=== PATIENT | female | born 1935 | race Caucasian/White ===

== ENCOUNTER 2023-10-04 10:51 | Emergency (ER) | payer OTHER ==
[~2023-10-04] VITALS: Ht 149.9 cm; Wt 67.8 kg
[2023-10-04 11:35] LABS: Basophils # (auto) 0.1 10 ^3/uL (0-0.2); Eosinophils # (auto) 0.1 10 ^3/uL (0-0.8); Eosinophils % (auto) 1.2 % (0.0-7.0); Hemoglobin 13.9 g/dL (12.2-16.2); Lymphocytes # (auto) 1.1 10 ^3/uL (0.4-5.4); Lymphocytes % (auto) 20.5 % (10.0-50.0); Mean Corpuscular Hemoglobin 27.3 pg (28.0-32.0); Mean Corpuscular Hgb Conc. 32.3 g/dL (32.0-36.0); Mean Corpuscular Volume 84.5 fL (80.0-100.0); Monocytes # (auto) 0.4 10 ^3/uL (0-1.3); Monocytes % (auto) 7.5 % (0.0-12.0); Neutrophils # (auto) 3.9 10 ^3/uL (1.6-8.6); Neutrophils % (auto) 69.8 % (37.0-80.0); Red Blood Cells 5.09 10^6/uL (4.0-5.20); Red Cell Distribution Width 15.1 % (11.8-14.3); White Blood Cell 5.6 10^3/uL (4.4-10.8)
[2023-10-04 11:47] LABS: INR 1.08 (0.9-1.15); Prothrombin Time 11.4 sec (9.3-11.8)
[2023-10-04 11:55] LABS: Alkaline Phosphatase 66 U/L (46-116); Anion Gap 4 (5-15); Aspartate Aminotransferase 9 U/L (13-40); BUN/Creatinine Ratio 13.6 (10.0-20.0); Blood Urea Nitrogen 12 mg/dL (9-23); Calcium 9.7 mg/dL (8.7-10.4); Carbon Dioxide 28 mmol/L (20-30); Chloride 107 mmol/L (98-107); Glucose 98 mg/dL (74-106); Lipase 33 U/L (12-53); Potassium 4.4 mmol/L (3.5-5.1); Sodium 139 mmol/L (136-145)
[2023-10-04 11:56] LABS: Bilirubin, Total 0.8 mg/dL (0.2-1.0); Total Protein 6.7 g/dL (5.7-8.2)
[2023-10-04 11:57] LABS: Alanine Aminotransferase < 9 U/L (7-40)
[2023-10-04 13:08] VITALS: BP 166/70; PULSE 62; RESP 16; TEMP 98; O2SAT 95
== END 2023-10-04 14:09 | disposition home or self-care (01) ==
LOC: ER 10:51
DX: Z04.89 Encounter for examination and observation for other specified reasons (principal); R51.9 Headache, unspecified
CPT/HCPCS: 36415; 70450; 80053; 83690; 84484; 85025; 85610; 93005

== ENCOUNTER 2023-10-24 06:59 | Inpatient (IN) | payer OTHER ==
[~2023-10-24] VITALS: Ht 149.9 cm; Wt 73.0 kg
[2023-10-24] VITALS (49 sets, daily range): BP systolic 84–141; BP diastolic 42–65; PULSE 67–82; RESP 9–20; TEMP 97.1–98.4; O2SAT 93–100
[2023-10-24] MEDS: IODIXANOL 320MG/ML 100ML BTL IV ONE ×6 (07:40→13:51)
[2023-10-24] MEDS: LIDOCAINE 2%HCL (LOCAL ANESTH.) INJ 20ML MDV ONE ×2 (07:40→12:17)
[2023-10-24] MEDS: HEPARIN SODIUM (PORCINE) 5000 UNITS/ML 1ML VIAL ONE (08:58)
[2023-10-24] MEDS: ANGIOMAX 250 MG VIAL IV ONE ×4 (08:58→14:15)
[2023-10-24] MEDS: VERAPAMIL 2.5MG/ML INJ 2ML VIAL IV ONE (08:58)
[2023-10-24] MEDS: fentaNYL CITRATE 100 MCG/2 ML VL ONE ×2 (08:59→10:23)
[2023-10-24] MEDS: MIDAZOLAM HCL 2MG/2ML 2ml VIAL (1mg/ml) ONE ×2 (08:59→10:24)
[2023-10-24] MEDS: SODIUM CHL 0.9% 50 ML ONE ×4 (08:59→14:15)
[2023-10-24] MEDS: NITROGLYCERIN 50MG/250ML 250 ML IV ONE (09:04)
[2023-10-24] MEDS: hydrALAZINE HCL 20 MG/ML VL ONE ×2 (09:27→13:46)
[2023-10-24] MEDS: ATROPINE SULF 1 MG/10ml SYR ONE (10:16)
[2023-10-24] MEDS: HYDROmorphone HCL 2 MG/ML VL/or syr ONE (10:48)
[2023-10-24] MEDS ORDERED: KETOROLAC TROMETH 30 MG/ML 1ML VIAL IV ONE (11:00)
[2023-10-24] MEDS: CLOPIDOGREL BISULFATE 75 MG TAB ONE ×2 (11:10→11:11)
[2023-10-24] MEDS: ASPirin 325 MG TAB ONE (11:10)
[2023-10-24] MEDS: ONDANSETRON HCL 4 MG/2 ML VIAL ONE (11:15)
[2023-10-24] MEDS ORDERED: NITROGLYCERIN 0.4 MG SL TAB SL PRN ×2 (12:15→14:45)
[2023-10-24] MEDS ORDERED: MORPHINE SULFATE INJ 2 MG/ml SYRG IV PRN ×2 (12:15→14:45)
[2023-10-24] MEDS: HEPARIN IN NS 1000Units/500mL 1,500 ML ONE (12:18)
[2023-10-24] MEDS: diphenhdrAMINE HCL 50 MG/1 ML VL ONE (13:03)
[2023-10-24 13:20] LABS: Base Excess 1.5 mmol/L (-2.0-2.0)
[2023-10-24] MEDS: ROCURONIUM 10MG/ML 10ML VIAL IV ONE (13:25)
[2023-10-24] MEDS: ETOMIDATE (2MG/ML) 20ML VIAL IV ONE (13:25)
[2023-10-24] MEDS: NOREPINEPHRINE 8 MG/250ML KIT 250 ML IV ONE (13:30)
[2023-10-24] MEDS: fentaNYL Drip 2500mCg/250mlNS 250 ML IV ONE (13:30)
[2023-10-24] MEDS: MIDAZOLAM DRIP 50 mg/50mL 50 ML IV ONE (13:30)
[2023-10-24] MEDS: METOPROLOL TARTRATE 1MG/1ML-5ML VIAL IV ONE (13:46)
[2023-10-24] MEDS ORDERED: ONDANSETRON HCL 4 MG/2 ML VIAL IV PRN (14:45)
[2023-10-24] MEDS: fentaNYL Drip 2500mCg/250mlNS 250 ML IV SCH (15:08)
[2023-10-24] MEDS: MIDAZOLAM DRIP 50 mg/50mL 50 ML IV SCH (15:08)
[2023-10-24 15:26] LABS: Base Excess -2.7 mmol/L (-2.0-2.0)
[2023-10-24] MEDS ORDERED: hydrALAZINE HCL 20 MG/ML VL IV PRN (15:30)
[2023-10-24] MEDS: SODIUM CHLORIDE 0.9% 1,000 ML IV SCH (15:43)
[2023-10-24] MEDS: PANTOPRAZOLE 40 MG/10 ML VIAL INJ IV ONE (16:48)
[2023-10-24] MEDS: ACETYLCYSTEINE ORAL for CIN 20%(200MG/ML) 4ML PO SCH (17:29)
[2023-10-24] MEDS: METOPROLOL TARTRATE 1MG/1ML-5ML VIAL IV SCH (17:31)
[2023-10-24 18:38] LABS: Basophils # (auto) 0 10 ^3/uL (0-0.2); Basophils % (auto) 0.3 % (0.0-2.0); Eosinophils # (auto) 0 10 ^3/uL (0-0.8); Hematocrit 43.9 % (36.0-46.0); Hemoglobin 14.1 g/dL (12.2-16.2); Lymphocytes # (auto) 0.8 10 ^3/uL (0.4-5.4); Lymphocytes % (auto) 6.3 % (10.0-50.0); Mean Corpuscular Hemoglobin 27.3 pg (28.0-32.0); Mean Corpuscular Hgb Conc. 32.2 g/dL (32.0-36.0); Mean Corpuscular Volume 84.9 fL (80.0-100.0); Monocytes # (auto) 1.1 10 ^3/uL (0-1.3); Monocytes % (auto) 8.8 % (0.0-12.0); Neutrophils # (auto) 11.1 10 ^3/uL (1.6-8.6); Neutrophils % (auto) 84.6 % (37.0-80.0); Red Blood Cells 5.17 10^6/uL (4.0-5.20); Red Cell Distribution Width 14.8 % (11.8-14.3); White Blood Cell 13.1 10^3/uL (4.4-10.8)
[2023-10-24 18:42] LABS: Chloride 107 mmol/L (98-107); Potassium 3.6 mmol/L (3.5-5.1); Sodium 140 mmol/L (136-145)
[2023-10-24 18:43] LABS: Anion Gap 13 (5-15); Carbon Dioxide 20 mmol/L (20-30)
[2023-10-24 18:44] LABS: Calcium 9.9 mg/dL (8.7-10.4)
[2023-10-24 18:48] LABS: BUN/Creatinine Ratio 12.7 (10.0-20.0); Blood Urea Nitrogen 9 mg/dL (9-23); Glucose 134 mg/dL (74-106)
[2023-10-24] MEDS: ATORVASTATIN 20 MG TAB PO SCH (22:06)
[2023-10-24 23:03] LABS: Albumin 3.8 g/dL (3.2-4.8); Alkaline Phosphatase 61 U/L (46-116); Anion Gap 11 (5-15); Aspartate Aminotransferase 12 U/L (13-40); BUN/Creatinine Ratio 11.3 (10.0-20.0); Bilirubin, Total 0.8 mg/dL (0.2-1.0); Blood Urea Nitrogen 8 mg/dL (9-23); Calcium 9.5 mg/dL (8.7-10.4); Carbon Dioxide 20 mmol/L (20-30); Chloride 110 mmol/L (98-107); Glucose 116 mg/dL (74-106); Potassium 3.6 mmol/L (3.5-5.1); Sodium 141 mmol/L (136-145); Total Protein 6.5 g/dL (5.7-8.2)
[2023-10-24 23:09] LABS: Alanine Aminotransferase < 9 U/L (7-40)
[2023-10-25] VITALS (69 sets, daily range): BP systolic 86–142; BP diastolic 42–76; PULSE 79–119; RESP 14–18; TEMP 98.2–99.6; O2SAT 92–100
[2023-10-25 06:59] LABS: Basophils # (auto) 0 10 ^3/uL (0-0.2); Basophils % (auto) 0.2 % (0.0-2.0); Eosinophils # (auto) 0 10 ^3/uL (0-0.8); Lymphocytes # (auto) 0.4 10 ^3/uL (0.4-5.4); Mean Corpuscular Volume 87.4 fL (80.0-100.0); Monocytes # (auto) 0.5 10 ^3/uL (0-1.3); Neutrophils # (auto) 5.9 10 ^3/uL (1.6-8.6); White Blood Cell 6.8 10^3/uL (4.4-10.8)
[2023-10-25 07:02] LABS: Hematocrit 21.9 % (36.0-46.0); Hemoglobin 7.2 g/dL (12.2-16.2); Lymphocytes % (auto) 5.4 % (10.0-50.0); Mean Corpuscular Hemoglobin 28.6 pg (28.0-32.0); Mean Corpuscular Hgb Conc. 32.7 g/dL (32.0-36.0); Monocytes % (auto) 7.6 % (0.0-12.0); Neutrophils % (auto) 86.8 % (37.0-80.0); Nucleated Red Blood Cells % 0.1 %; Red Blood Cells 2.51 10^6/uL (4.0-5.20); Red Cell Distribution Width 15.2 % (11.8-14.3)
[2023-10-25 07:03] LABS: Base Excess -7.5 mmol/L (-2.0-2.0)
[2023-10-25] MEDS: DexmedeTOMIDine 200 MCG in D5W 5% 48 ML IV SCH (07:30)
[2023-10-25 08:55] LABS: Chloride 111 mmol/L (98-107); Potassium 3.8 mmol/L (3.5-5.1); Sodium 141 mmol/L (136-145)
[2023-10-25 08:58] LABS: Anion Gap 6 (5-15); Calcium 8.8 mg/dL (8.5-10.1); Carbon Dioxide 24 mmol/L (20-30)
[2023-10-25 09:03] LABS: Alkaline Phosphatase 55 U/L (46-116); BUN/Creatinine Ratio 11.6 (10.0-20.0); Blood Urea Nitrogen 10 mg/dL (9-23); Glucose 126 mg/dL (74-106)
[2023-10-25 09:05] LABS: Alanine Aminotransferase < 9 U/L (7-40); Albumin 3.4 g/dL (3.2-4.8); Aspartate Aminotransferase 16 U/L (13-40); Bilirubin, Total 0.8 mg/dL (0.2-1.0); Total Protein 5.6 g/dL (5.7-8.2)
[2023-10-25] MEDS: CLOPIDOGREL BISULFATE 75 MG TAB PO SCH (09:34)
[2023-10-25] MEDS: ASPirin 81 mg TAB PO SCH (09:35)
[2023-10-25] MEDS: PANTOPRAZOLE 40 MG/10 ML VIAL INJ IV SCH (10:19)
[2023-10-25 18:13] LABS: Basophils # (auto) 0 10 ^3/uL (0-0.2); Basophils % (auto) 0.2 % (0.0-2.0); Eosinophils # (auto) 0 10 ^3/uL (0-0.8); Eosinophils % (auto) 0.1 % (0.0-7.0); Hematocrit 34.3 % (36.0-46.0); Hemoglobin 11.1 g/dL (12.2-16.2); Lymphocytes % (auto) 10.3 % (10.0-50.0); Mean Corpuscular Hemoglobin 27.7 pg (28.0-32.0); Mean Corpuscular Hgb Conc. 32.4 g/dL (32.0-36.0); Mean Corpuscular Volume 85.6 fL (80.0-100.0); Monocytes # (auto) 1.1 10 ^3/uL (0-1.3); Monocytes % (auto) 11.2 % (0.0-12.0); Neutrophils # (auto) 7.4 10 ^3/uL (1.6-8.6); Neutrophils % (auto) 78.2 % (37.0-80.0); Red Blood Cells 4.01 10^6/uL (4.0-5.20); Red Cell Distribution Width 15.2 % (11.8-14.3); White Blood Cell 9.5 10^3/uL (4.4-10.8)
[2023-10-25 18:39] LABS: Albumin 3.3 g/dL (3.2-4.8); Alkaline Phosphatase 49 U/L (46-116); Anion Gap 5 (5-15); Aspartate Aminotransferase 19 U/L (13-40); BUN/Creatinine Ratio 13.7 (10.0-20.0); Blood Urea Nitrogen 10 mg/dL (9-23); Calcium 8.6 mg/dL (8.5-10.1); Carbon Dioxide 25 mmol/L (20-30); Chloride 113 mmol/L (98-107); Glucose 109 mg/dL (74-106); Potassium 3.5 mmol/L (3.5-5.1); Sodium 143 mmol/L (136-145)
[2023-10-25 18:40] LABS: Bilirubin, Total 0.7 mg/dL (0.2-1.0); Total Protein 5.3 g/dL (5.7-8.2)
[2023-10-25 18:50] LABS: Alanine Aminotransferase < 9 U/L (7-40)
[2023-10-26] VITALS (8 sets, daily range): BP systolic 98–150; BP diastolic 56–75; PULSE 89–103; RESP 16–20; TEMP 98.3–99.5; O2SAT 91–96
[2023-10-26 05:40] LABS: Basophils # (auto) 0 10 ^3/uL (0-0.2); Basophils % (auto) 0.7 % (0.0-2.0); Eosinophils # (auto) 0 10 ^3/uL (0-0.8); Eosinophils % (auto) 0.6 % (0.0-7.0); Hematocrit 31.9 % (36.0-46.0); Hemoglobin 10.4 g/dL (12.2-16.2); Lymphocytes % (auto) 14.4 % (10.0-50.0); Mean Corpuscular Hemoglobin 27.7 pg (28.0-32.0); Mean Corpuscular Hgb Conc. 32.5 g/dL (32.0-36.0); Mean Corpuscular Volume 85.1 fL (80.0-100.0); Monocytes # (auto) 0.7 10 ^3/uL (0-1.3); Monocytes % (auto) 10.5 % (0.0-12.0); Neutrophils # (auto) 5.1 10 ^3/uL (1.6-8.6); Neutrophils % (auto) 73.8 % (37.0-80.0); Red Blood Cells 3.75 10^6/uL (4.0-5.20); Red Cell Distribution Width 14.8 % (11.8-14.3); White Blood Cell 6.9 10^3/uL (4.4-10.8)
[2023-10-26 18:26] LABS: Chloride 110 mmol/L (98-107); Potassium 3.3 mmol/L (3.5-5.1); Sodium 140 mmol/L (136-145)
[2023-10-26 18:27] LABS: Anion Gap 7 (5-15); Carbon Dioxide 23 mmol/L (20-30)
[2023-10-26 18:32] LABS: BUN/Creatinine Ratio 10.8 (10.0-20.0); Blood Urea Nitrogen 7 mg/dL (9-23); Glucose 106 mg/dL (74-106)
[2023-10-27 05:00] VITALS: BP 142/63; PULSE 80; RESP 17; TEMP 98.8; O2SAT 96
[2023-10-27 06:10] LABS: Basophils # (auto) 0.1 10 ^3/uL (0-0.2); Basophils % (auto) 1.1 % (0.0-2.0); Eosinophils # (auto) 0.1 10 ^3/uL (0-0.8); Eosinophils % (auto) 1.5 % (0.0-7.0); Hematocrit 28.2 % (36.0-46.0); Hemoglobin 9.4 g/dL (12.2-16.2); Lymphocytes # (auto) 0.8 10 ^3/uL (0.4-5.4); Lymphocytes % (auto) 11.9 % (10.0-50.0); Mean Corpuscular Hemoglobin 28.2 pg (28.0-32.0); Mean Corpuscular Hgb Conc. 33.4 g/dL (32.0-36.0); Mean Corpuscular Volume 84.4 fL (80.0-100.0); Monocytes # (auto) 0.7 10 ^3/uL (0-1.3); Monocytes % (auto) 10.7 % (0.0-12.0); Neutrophils # (auto) 4.9 10 ^3/uL (1.6-8.6); Neutrophils % (auto) 74.8 % (37.0-80.0); Red Blood Cells 3.34 10^6/uL (4.0-5.20); Red Cell Distribution Width 14.3 % (11.8-14.3); White Blood Cell 6.6 10^3/uL (4.4-10.8)
[2023-10-27 08:00] VITALS: PULSE 86; PULSE 90; RESP 19; O2SAT 94
[2023-10-27 09:18] VITALS: BP 115/55; PULSE 86; RESP 19; TEMP 97.5; O2SAT 94
[2023-10-27 13:15] VITALS: BP 127/81; PULSE 79; RESP 19; TEMP 98.2; O2SAT 95
[2023-10-27] MEDS ORDERED: ATOR20TA50 PO ×2 (13:56→14:35)
[2023-10-27] MEDS ORDERED: ASPI-325 PO ×2 (13:56→14:35)
[2023-10-27] MEDS ORDERED: CLOP75TA70 PO ×2 (13:56→14:35)
[2023-10-27] MEDS: HYDROcodone-ACET 5/325MG TAB PO PRN (14:30)
[2023-10-27 15:42] VITALS: BP 127/81; PULSE 79; RESP 19; TEMP 98.2; O2SAT 95
== END 2023-10-27 16:30 | disposition home health service (06) | DRG 323 ==
LOC: CATH 06:59 → OVERFLOW 12:10 → TELE-EAST 10-25 16:30
PROVIDERS: ADMIT Internal Medicine; ATTEND Hospitalist
PROC: 027035Z Dilation of Coronary Artery, One Artery with Two Drug-eluting Intraluminal Devices, Percutaneous Approach (ICD-10-PCS; principal; 2023-10-24)
PROC: 4A023N7 Measurement of Cardiac Sampling and Pressure, Left Heart, Percutaneous Approach (ICD-10-PCS; 2023-10-24)
PROC: B211YZZ Fluoroscopy of Multiple Coronary Arteries using Other Contrast (ICD-10-PCS; 2023-10-24)
PROC: B215YZZ Fluoroscopy of Left Heart using Other Contrast (ICD-10-PCS; 2023-10-24)
PROC: 02F03ZZ Fragmentation in Coronary Artery, One Artery, Percutaneous Approach (ICD-10-PCS; 2023-10-24)
PROC: B241ZZ3 Ultrasonography of Multiple Coronary Arteries, Intravascular (ICD-10-PCS; 2023-10-24)
PROC: 027136Z Dilation of Coronary Artery, Two Arteries with Three Drug-eluting Intraluminal Devices, Percutaneous Approach (ICD-10-PCS; 2023-10-24)
PROC: 4A033BC Measurement of Arterial Pressure, Coronary, Percutaneous Approach (ICD-10-PCS; 2023-10-24)
PROC: 0BH17EZ Insertion of Endotracheal Airway into Trachea, Via Natural or Artificial Opening (ICD-10-PCS; 2023-10-24)
PROC: 5A1935Z Respiratory Ventilation, Less than 24 Consecutive Hours (ICD-10-PCS; 2023-10-24)
DX: I21.4 Non-ST elevation (NSTEMI) myocardial infarction (principal); J96.01 Acute respiratory failure with hypoxia; J98.11 Atelectasis; I25.10 Atherosclerotic heart disease of native coronary artery without angina pectoris; I10 Essential (primary) hypertension; Z95.5 Presence of coronary angioplasty implant and graft; Z91.199 Patient's noncompliance with other medical treatment and regimen due to unspecified reason
CPT/HCPCS: 0523T; 92941; 92972; 93458; 36415; 36600; 71045; 80048; 80053; 82805; 85025; 85379; 87070; 87081; 87205; 93005; 94002; 94003; 97110; 97116; 97163; 97530; 99152; 99153; C1874; C9113; G0378; J2250; J2405; J7060; Q9967

== ENCOUNTER 2023-11-09 10:15 | Inpatient (IN) | payer OTHER ==
[~2023-11-09] VITALS: Ht 167.6 cm; Wt 73.0 kg
[~2023-11-09 10:15] MED LIST: ASPI-325 PO; ATOR20TA50 PO; CLOP75TA70 PO
[2023-11-09 11:00] VITALS: PULSE 66; RESP 13; O2SAT 96
[2023-11-09] MEDS: SODIUM CHLORIDE 0.9% 1,000 ML IVB ONE (12:17)
[2023-11-09] MEDS: ACETAMINOPHEN 325 MG TAB PO ONE (12:18)
[2023-11-09] MEDS: ONDANSETRON HCL 4 MG/2 ML VIAL IV ONE (12:18)
[2023-11-09] MEDS: MORPHINE SULFATE INJ 2 MG/ml SYRG IV ONE (12:19)
[2023-11-09 14:43] LABS: Alanine Aminotransferase 12 U/L (7-40); Albumin 3.9 g/dL (3.2-4.8); Alkaline Phosphatase 58 U/L (46-116); Anion Gap 10 (5-15); Aspartate Aminotransferase 10 U/L (13-40); BUN/Creatinine Ratio 17.7 (10.0-20.0); Blood Urea Nitrogen 14 mg/dL (9-23); Calcium 9.1 mg/dL (8.5-10.1); Carbon Dioxide 24 mmol/L (20-30); Chloride 104 mmol/L (98-107); Glucose 75 mg/dL (74-106); Potassium 3.8 mmol/L (3.5-5.1); Sodium 138 mmol/L (136-145)
[2023-11-09 14:44] LABS: Total Protein 6.5 g/dL (5.7-8.2)
[2023-11-09 14:50] LABS: Basophils # (auto) 0.1 10 ^3/uL (0-0.2); Basophils % (auto) 1.1 % (0.0-2.0); Eosinophils # (auto) 0.1 10 ^3/uL (0-0.8); Eosinophils % (auto) 1.1 % (0.0-7.0); Hematocrit 34.2 % (36.0-46.0); Hemoglobin 11.2 g/dL (12.2-16.2); Lymphocytes # (auto) 0.9 10 ^3/uL (0.4-5.4); Lymphocytes % (auto) 11.5 % (10.0-50.0); Mean Corpuscular Hemoglobin 27.8 pg (28.0-32.0); Mean Corpuscular Hgb Conc. 32.7 g/dL (32.0-36.0); Monocytes # (auto) 0.5 10 ^3/uL (0-1.3); Monocytes % (auto) 6.5 % (0.0-12.0); Neutrophils # (auto) 6.6 10 ^3/uL (1.6-8.6); Neutrophils % (auto) 79.8 % (37.0-80.0); Red Blood Cells 4.02 10^6/uL (4.0-5.20); Red Cell Distribution Width 15.6 % (11.8-14.3); White Blood Cell 8.3 10^3/uL (4.4-10.8)
[2023-11-09 14:54] LABS: INR 1.08 (0.9-1.15); Partial Thromboplastin Time 27.4 SEC (24.5-34.5); Prothrombin Time 11.4 sec (9.3-11.8)
[2023-11-09] MEDS ORDERED: ACETAMINOPHEN 325 MG TAB PO PRN (16:45)
[2023-11-09] MEDS ORDERED: MORPHINE SULFATE INJ 2 MG/ml SYRG IV PRN ×2 (16:45)
[2023-11-09] MEDS ORDERED: NITROGLYCERIN 0.4 MG SL TAB SL PRN (16:45)
[2023-11-09] MEDS ORDERED: ONDANSETRON HCL 4 MG/2 ML VIAL IV PRN (16:45)
[2023-11-09] MEDS: THROMBIN (BOVINE) 5000 UNIT SOL VIAL TP ONE (18:15)
[2023-11-09 19:30] VITALS: PULSE 87; RESP 21; O2SAT 94
[2023-11-09 22:10] VITALS: BP 152/53; PULSE 72; RESP 16; TEMP 98.4; O2SAT 96
[2023-11-09] MEDS: ATORVASTATIN 20 MG TAB PO SCH (22:16)
[2023-11-09] MEDS: HYDROcodone-ACET 5/325MG TAB PO PRN (22:17)
[2023-11-09 23:27] VITALS: BP 152/53; PULSE 72; RESP 16; RESP 18; TEMP 98.4; O2SAT 96
[2023-11-10] VITALS (8 sets, daily range): BP systolic 106–136; BP diastolic 52–69; PULSE 63–82; RESP 16–18; TEMP 98–98.7; O2SAT 88–98
[2023-11-10 06:51] LABS: Basophils # (auto) 0.1 10 ^3/uL (0-0.2); Basophils % (auto) 1.2 % (0.0-2.0); Eosinophils # (auto) 0.2 10 ^3/uL (0-0.8); Eosinophils % (auto) 2.4 % (0.0-7.0); Hematocrit 33.9 % (36.0-46.0); Hemoglobin 11.3 g/dL (12.2-16.2); Mean Corpuscular Hemoglobin 28.3 pg (28.0-32.0); Mean Corpuscular Hgb Conc. 33.4 g/dL (32.0-36.0); Mean Corpuscular Volume 84.8 fL (80.0-100.0); Monocytes # (auto) 0.6 10 ^3/uL (0-1.3); Monocytes % (auto) 9.2 % (0.0-12.0); Neutrophils # (auto) 4.8 10 ^3/uL (1.6-8.6); Neutrophils % (auto) 72.2 % (37.0-80.0); Red Blood Cells 3.99 10^6/uL (4.0-5.20); Red Cell Distribution Width 15.7 % (11.8-14.3); White Blood Cell 6.7 10^3/uL (4.4-10.8)
[2023-11-10] MEDS ORDERED: POTA-36 PO (06:51)
[2023-11-10 07:38] LABS: Alanine Aminotransferase 14 U/L (7-40); Alkaline Phosphatase 56 U/L (46-116); Anion Gap 5 (5-15); BUN/Creatinine Ratio 19.3 (10.0-20.0); Blood Urea Nitrogen 16 mg/dL (9-23); Calcium 9.3 mg/dL (8.5-10.1); Carbon Dioxide 29 mmol/L (20-30); Chloride 104 mmol/L (98-107); Glucose 83 mg/dL (74-106); Potassium 4.4 mmol/L (3.5-5.1); Sodium 138 mmol/L (136-145)
[2023-11-10 07:40] LABS: Albumin 3.8 g/dL (3.2-4.8); Aspartate Aminotransferase < 8 U/L (13-40); Bilirubin, Total 0.7 mg/dL (0.2-1.0); Total Protein 6.1 g/dL (5.7-8.2)
[2023-11-10] MEDS: CLOPIDOGREL BISULFATE 75 MG TAB PO SCH (09:32)
[2023-11-10] MEDS: ASPirin-EC 81 mg tab PO SCH (09:32)
[2023-11-11] VITALS (8 sets, daily range): BP systolic 105–154; BP diastolic 51–73; PULSE 65–108; RESP 16–18; TEMP 97.6–99.3; O2SAT 93–98
[2023-11-12] VITALS (8 sets, daily range): BP systolic 120–155; BP diastolic 66–73; PULSE 62–84; RESP 16–20; TEMP 97–98.9; O2SAT 86–96
[2023-11-12] MEDS ORDERED: OMNIPAQUE 12mg/ml 500ml ORAL SOLUTION PO ONE (11:25)
[2023-11-12] MEDS ORDERED: IOHEXOL 300 MG/ML 100ML BOTTLE IJ ONE (11:25)
[2023-11-12] MEDS: DOCUSATE SOD 100 MG CAP PO SCH (20:22)
[2023-11-12] MEDS: SENNA 8.6 MG TAB PO SCH (20:22)
[2023-11-12 21:37] LABS: Basophils # (auto) 0.1 10 ^3/uL (0-0.2); Basophils % (auto) 1.8 % (0.0-2.0); Eosinophils # (auto) 0.2 10 ^3/uL (0-0.8); Eosinophils % (auto) 2.6 % (0.0-7.0); Hematocrit 35.9 % (36.0-46.0); Hemoglobin 11.8 g/dL (12.2-16.2); Lymphocytes % (auto) 14.7 % (10.0-50.0); Mean Corpuscular Hemoglobin 27.7 pg (28.0-32.0); Mean Corpuscular Hgb Conc. 32.9 g/dL (32.0-36.0); Mean Corpuscular Volume 84.2 fL (80.0-100.0); Monocytes # (auto) 0.6 10 ^3/uL (0-1.3); Monocytes % (auto) 9.2 % (0.0-12.0); Neutrophils # (auto) 4.8 10 ^3/uL (1.6-8.6); Neutrophils % (auto) 71.7 % (37.0-80.0); Red Blood Cells 4.26 10^6/uL (4.0-5.20); Red Cell Distribution Width 15.1 % (11.8-14.3); White Blood Cell 6.7 10^3/uL (4.4-10.8)
[2023-11-12 21:52] LABS: Alanine Aminotransferase 12 U/L (7-40); Albumin 3.9 g/dL (3.2-4.8); Alkaline Phosphatase 61 U/L (46-116); Anion Gap 4 (5-15); Aspartate Aminotransferase 9 U/L (13-40); Bilirubin, Total 0.7 mg/dL (0.2-1.0); Blood Urea Nitrogen 10 mg/dL (9-23); Calcium 9.7 mg/dL (8.5-10.1); Carbon Dioxide 29 mmol/L (20-30); Chloride 103 mmol/L (98-107); Glucose 123 mg/dL (74-106); Potassium 3.6 mmol/L (3.5-5.1); Sodium 136 mmol/L (136-145)
[2023-11-12 21:53] LABS: Total Protein 6.2 g/dL (5.7-8.2)
[2023-11-12 22:12] LABS: INR 1.06 (0.9-1.15); Partial Thromboplastin Time 26.8 SEC (24.5-34.5); Prothrombin Time 11.2 sec (9.3-11.8)
[2023-11-13] VITALS (8 sets, daily range): BP systolic 119–152; BP diastolic 66–84; PULSE 65–90; RESP 17–20; TEMP 97.3–98; O2SAT 93–96
[2023-11-14] VITALS (8 sets, daily range): BP systolic 106–151; BP diastolic 55–69; PULSE 70–94; RESP 16–22; TEMP 97.5–98.2; O2SAT 93–97
[2023-11-15] VITALS (9 sets, daily range): BP systolic 94–137; BP diastolic 45–81; PULSE 66–116; RESP 16–20; TEMP 96.7–98.2; O2SAT 83–94
[2023-11-15] MEDS: HEPARIN SODIUM (PORCINE) 5000 UNITS/ML 1ML VIAL ONE (06:33)
[2023-11-15] MEDS ORDERED: ceFAZolin 2 GM/D5W50ml 50 ML IV ONE (07:08)
[2023-11-15] MEDS ORDERED: SODIUM CHLORIDE LOCK 20 ML ONE (07:31)
[2023-11-15] MEDS ORDERED: KETAMINE 50mg/ML 1ml syringe ONE (07:31)
[2023-11-15] MEDS ORDERED: ONDANSETRON HCL 4 MG/2 ML VIAL ONE (07:31)
[2023-11-15] MEDS ORDERED: MIDAZOLAM HCL 2MG/2ML 2ml VIAL (1mg/ml) ONE (07:31)
[2023-11-15] MEDS ORDERED: fentaNYL CITRATE 100 MCG/2 ML VL ONE ×2 (07:31→07:44)
[2023-11-15] MEDS ORDERED: SUCCINYLCHOLINE CHLORIDE 20 MG/ML 10ML VIAL IV ONE (07:37)
[2023-11-15] MEDS ORDERED: HYDROmorphone HCL 2 MG/ML VL/or syr IV PRN (09:30)
[2023-11-15] MEDS ORDERED: ONDANSETRON HCL 4 MG/2 ML VIAL IV ONE (09:30)
[2023-11-15] MEDS ORDERED: LABETALOL HCL 5 MG/ML 4ML SYRINGE IV PRN (10:00)
[2023-11-15] MEDS ORDERED: ROCURONIUM 10MG/ML 10ML VIAL IV ONE (10:26)
[2023-11-15] MEDS: HYDROmorphone HCL 2 MG/ML VL/or syr IV PRN (10:26)
[2023-11-15] MEDS ORDERED: GLYCOPYRROLATE 0.2 MG/ML 1ML VIAL ONE (10:27)
[2023-11-15] MEDS ORDERED: NEOSTIGMINE 1 MG/ML INJ (10mg/10ML VIAL) ONE (10:27)
[2023-11-15] MEDS ORDERED: EPINEPHrine HCL 1 MG/1 ML AMP ONE (10:28)
[2023-11-16] VITALS (9 sets, daily range): BP systolic 97–141; BP diastolic 45–63; PULSE 83–113; RESP 14–20; TEMP 97.3–98.6; O2SAT 93–99
[2023-11-16 06:03] LABS: Basophils # (auto) 0.1 10 ^3/uL (0-0.2); Basophils % (auto) 0.6 % (0.0-2.0); Eosinophils # (auto) 0 10 ^3/uL (0-0.8); Eosinophils % (auto) 0.1 % (0.0-7.0); Hematocrit 30.7 % (36.0-46.0); Hemoglobin 10.3 g/dL (12.2-16.2); Lymphocytes # (auto) 0.9 10 ^3/uL (0.4-5.4); Lymphocytes % (auto) 8.6 % (10.0-50.0); Mean Corpuscular Hemoglobin 28.6 pg (28.0-32.0); Mean Corpuscular Hgb Conc. 33.7 g/dL (32.0-36.0); Monocytes % (auto) 9.8 % (0.0-12.0); Neutrophils # (auto) 8.6 10 ^3/uL (1.6-8.6); Neutrophils % (auto) 80.9 % (37.0-80.0); Red Blood Cells 3.61 10^6/uL (4.0-5.20); Red Cell Distribution Width 15.4 % (11.8-14.3); White Blood Cell 10.6 10^3/uL (4.4-10.8)
[2023-11-16 06:26] LABS: Alanine Aminotransferase 10 U/L (7-40); Alkaline Phosphatase 60 U/L (46-116); Anion Gap 13 (5-15); BUN/Creatinine Ratio 16.7 (10.0-20.0); Blood Urea Nitrogen 18 mg/dL (9-23); Calcium 9.2 mg/dL (8.5-10.1); Carbon Dioxide 21 mmol/L (20-30); Chloride 100 mmol/L (98-107); Glucose 132 mg/dL (74-106); Potassium 4.4 mmol/L (3.5-5.1); Sodium 134 mmol/L (136-145)
[2023-11-16 06:27] LABS: Albumin 3.4 g/dL (3.2-4.8); Aspartate Aminotransferase 8 U/L (13-40); Bilirubin, Total 0.9 mg/dL (0.2-1.0); Total Protein 5.3 g/dL (5.7-8.2)
[2023-11-16] MEDS: OXYCODONE W/ ACETAMINOPHEN 5/325MG TABLET PO PRN (09:39)
[2023-11-17] VITALS (7 sets, daily range): BP systolic 99–111; BP diastolic 43–57; PULSE 68–93; RESP 17–19; TEMP 98.1–98.4; O2SAT 93–98
[2023-11-17 05:12] LABS: Basophils % (auto) 0.7 % (0.0-2.0); Eosinophils # (auto) 0.1 10 ^3/uL (0-0.8); Lymphocytes # (auto) 0.6 10 ^3/uL (0.4-5.4); Lymphocytes % (auto) 8.5 % (10.0-50.0); Monocytes # (auto) 0.8 10 ^3/uL (0-1.3); Neutrophils # (auto) 5.8 10 ^3/uL (1.6-8.6); Red Blood Cells 3.09 10^6/uL (4.0-5.20)
[2023-11-17 05:14] LABS: Basophils # (auto) 0 10 ^3/uL (0-0.2); Eosinophils % (auto) 1.7 % (0.0-7.0); Hematocrit 25.8 % (36.0-46.0); Hemoglobin 8.5 g/dL (12.2-16.2); Mean Corpuscular Hemoglobin 27.4 pg (28.0-32.0); Mean Corpuscular Hgb Conc. 32.8 g/dL (32.0-36.0); Mean Corpuscular Volume 83.5 fL (80.0-100.0); Monocytes % (auto) 11.3 % (0.0-12.0); Neutrophils % (auto) 77.8 % (37.0-80.0); Red Cell Distribution Width 15.3 % (11.8-14.3); White Blood Cell 7.5 10^3/uL (4.4-10.8)
[2023-11-17 05:29] LABS: Alanine Aminotransferase < 9 U/L (7-40); Albumin 3.3 g/dL (3.2-4.8); Alkaline Phosphatase 52 U/L (46-116); Anion Gap 5 (5-15); Aspartate Aminotransferase < 8 U/L (13-40); Blood Urea Nitrogen 18 mg/dL (9-23); Calcium 8.9 mg/dL (8.5-10.1); Carbon Dioxide 26 mmol/L (20-30); Chloride 100 mmol/L (98-107); Glucose 103 mg/dL (74-106); Magnesium 1.8 mg/dL (1.6-2.6); Potassium 4.2 mmol/L (3.5-5.1); Sodium 131 mmol/L (136-145)
[2023-11-17 05:30] LABS: Bilirubin, Total 0.8 mg/dL (0.2-1.0); Total Protein 5.3 g/dL (5.7-8.2)
[2023-11-18] VITALS (8 sets, daily range): BP systolic 103–133; BP diastolic 43–65; PULSE 69–91; RESP 17–20; TEMP 97.7–98.1; O2SAT 93–97
[2023-11-19] VITALS (7 sets, daily range): BP systolic 104–136; BP diastolic 48–62; PULSE 74–85; RESP 16–18; TEMP 97.5–98; O2SAT 94–95
[2023-11-19] MEDS ORDERED: HYDR-4902 PO (15:39)
== END 2023-11-19 18:12 | disposition home health service (06) | DRG 253 ==
LOC: EDBD 10:15 → ER 10:15 → TELE 16:48 → TELE-WESTW 16:48
PROVIDERS: ADMIT Internal Medicine; ATTEND Internal Medicine
PROC: 04CL0ZZ Extirpation of Matter from Left Femoral Artery, Open Approach (ICD-10-PCS; principal; 2023-11-15 07:50)
DX: I72.4 Aneurysm of artery of lower extremity (principal); R71.0 Precipitous drop in hematocrit; I25.10 Atherosclerotic heart disease of native coronary artery without angina pectoris; E78.5 Hyperlipidemia, unspecified; R58 Hemorrhage, not elsewhere classified; F41.9 Anxiety disorder, unspecified; I10 Essential (primary) hypertension; Z79.02 Long term (current) use of antithrombotics/antiplatelets; Z79.82 Long term (current) use of aspirin; Z79.899 Other long term (current) drug therapy; Z95.5 Presence of coronary angioplasty implant and graft; Z82.49 Family history of ischemic heart disease and other diseases of the circulatory system
CPT/HCPCS: 36415; 70450; 71045; 74177; 80053; 83735; 83880; 84484; 85025; 85610; 85730; 86850; 86900; 86901; 87081; 93005; 93926; 97110; 97116; 97163; 97530; G0378; J0171; J0330; J2250; J2405; J3490

== ENCOUNTER 2023-11-21 08:43 | Emergency (ER) | payer OTHER ==
[~2023-11-21] VITALS: Ht 162.6 cm; Wt 63.6 kg
[~2023-11-21 08:43] MED LIST changes: +HYDR-4902 PO
[2023-11-21 09:10] VITALS: PULSE 76; RESP 20; TEMP 97.9; O2SAT 94
[2023-11-21] MEDS: SODIUM CHLORIDE 0.9% 500 ML IV ONE (09:16)
[2023-11-21 10:02] LABS: Anion Gap 7 (5-15); Basophils # (auto) 0.1 10 ^3/uL (0-0.2); Basophils % (auto) 0.5 % (0.0-2.0); Carbon Dioxide 28 mmol/L (20-30); Chloride 100 mmol/L (98-107); Eosinophils # (auto) 0.1 10 ^3/uL (0-0.8); Eosinophils % (auto) 0.5 % (0.0-7.0); Hematocrit 28.1 % (36.0-46.0); Hemoglobin 9.3 g/dL (12.2-16.2); Lymphocytes # (auto) 0.7 10 ^3/uL (0.4-5.4); Lymphocytes % (auto) 7.1 % (10.0-50.0); Mean Corpuscular Hemoglobin 27.8 pg (28.0-32.0); Mean Corpuscular Volume 84.2 fL (80.0-100.0); Monocytes # (auto) 1.1 10 ^3/uL (0-1.3); Monocytes % (auto) 10.7 % (0.0-12.0); Neutrophils # (auto) 8.2 10 ^3/uL (1.6-8.6); Neutrophils % (auto) 81.2 % (37.0-80.0); Potassium 3.5 mmol/L (3.5-5.1); Red Blood Cells 3.33 10^6/uL (4.0-5.20); Red Cell Distribution Width 15.5 % (11.8-14.3); Sodium 135 mmol/L (136-145); White Blood Cell 10.1 10^3/uL (4.4-10.8)
[2023-11-21 10:03] LABS: Calcium 9.3 mg/dL (8.5-10.1)
[2023-11-21 10:08] LABS: Glucose 109 mg/dL (74-106)
[2023-11-21 10:09] LABS: BUN/Creatinine Ratio 17.8 (10.0-20.0); Blood Urea Nitrogen 16 mg/dL (9-23)
[2023-11-21 14:56] VITALS: BP 131/58; PULSE 77; RESP 22; O2SAT 94
== END 2023-11-21 17:03 | disposition home or self-care (01) ==
LOC: EDUNIT# 08:43 → ER 08:43 → EDBD 08:43 → ER 17:03
DX: R53.1 Weakness (principal); I10 Essential (primary) hypertension; E78.5 Hyperlipidemia, unspecified; F41.9 Anxiety disorder, unspecified; Z98.890 Other specified postprocedural states; Z79.899 Other long term (current) drug therapy
CPT/HCPCS: 36415; 80048; 84484; 85025; 93005

== ENCOUNTER 2023-12-01 08:31 | Emergency (ER) | payer OTHER ==
[~2023-12-01] VITALS: Ht 152.4 cm; Wt 63.6 kg
[2023-12-01 10:07] VITALS: BP 122/78; PULSE 75; RESP 18; TEMP 98; O2SAT 98
== END 2023-12-01 10:38 | disposition home or self-care (01) ==
LOC: EDBD 08:31 → ER 08:31
DX: S30.92XD Unspecified superficial injury of abdominal wall, subsequent encounter (principal); I10 Essential (primary) hypertension; E78.5 Hyperlipidemia, unspecified; Z90.89 Acquired absence of other organs; Z79.891 Long term (current) use of opiate analgesic; Z79.82 Long term (current) use of aspirin; Z98.890 Other specified postprocedural states; X58.XXXD Exposure to other specified factors, subsequent encounter